=== PATIENT | female | born 1960 | race Caucasian/White ===

== ENCOUNTER 2018-02-28 08:45 | Emergency (ER) | payer OTHER ==
--- NOTE | 2018-02-28 09:09 | ED ---
Chest Pain HPI - General Chief Complaint: Chest Pain Stated Complaint: chest pain Time Seen by Provider: 02/28/18 08:53 Source: patient, RN notes reviewed, old records reviewed Mode of arrival: wheelchair Limitations: no limitations - History of Present Illness Initial Comments: This is a 4-year-old female the ER for evasive left-sided chest pain chest pain under her left breast severe. This been going on and off for a few days but is definitely present today and worse. She has had prior heart history with cardiac evaluation about 10 years ago, patient does have high blood pressure high cholesterol smoker. Patient is no prior cardiac disease. No recent travel history or sick contacts no fevers cough or congestion. MD Complaint: chest pain -: days(s) (5) Onset: during rest, during exertion Pain Location: substernal, left chest Pain Radiation: LUE Severity: mild Severity scale (1-10): 4 Quality: tightness, aching Consistency: constant Improves With: nothing Worsens With: exertion Anginal Symptoms: nausea Other Symptoms: cough Treatments Prior to Arrival: none - Related Data Home Medications Medication Instructions Recorded Confirmed Amitriptyline HCl 50 mg PO HS 02/28/18 02/28/18 Aspirin EC [Ecotrin Low Dose] 81 mg PO DAILY 02/28/18 02/28/18 Cholecalciferol [Vitamin D3] 1,000 unit PO DAILY 02/28/18 02/28/18 Cyanocobalamin (Vitamin B-12) 1,000 mcg PO DAILY 02/28/18 02/28/18 [Vitamin B-12] Gabapentin [Neurontin] 600 mg PO TID 02/28/18 02/28/18 Insulin Aspart [NovoLOG See Protocol SQ AC-TID 02/28/18 02/28/18 (formulary)] Insulin Glargine,Hum.rec.anlog 45 units SQ QAM 02/28/18 02/28/18 [Basaglar Kwikpen U-100] Levothyroxine Sodium 25 mcg PO QAM 02/28/18 02/28/18 Lisinopril [Zestril] 5 mg PO DAILY 02/28/18 02/28/18 Metoprolol Succinate (ER) [Toprol 25 mg PO DAILY 02/28/18 02/28/18 XL] Multivitamins, Thera [Multivitamin 1 tab PO DAILY 02/28/18 02/28/18 (formulary)] Simvastatin [Zocor] 40 mg PO HS 02/28/18 02/28/18 metFORMIN HCL [metFORMIN HCL ER] 750 mg PO W/SUPPER 02/28/18 02/28/18 Allergies Allergy/AdvReac Type Severity Reaction Status Date / Time No Known Allergies Allergy Verified 02/28/18 09:52 Review of Systems ROS Statement: Those systems with pertinent positive or pertinent negative responses have been documented in the HPI. ROS Other: All systems not noted in ROS Statement are negative. EKG Findings - EKG Comments: EKG Findings:: EKG shows a sinus rhythm rate of 84, SD 164, QRS 70, QTc 456 Past Medical History Past Medical History: Diabetes Mellitus, Hyperlipidemia History of Any Multi-Drug Resistant Organisms: None Reported Past Surgical History: Section, Cholecystectomy Past Psychological History: No Psychological Hx Reported Smoking Status: Current every day smoker Past Alcohol Use History: None Reported Past Drug Use History: None Reported General Exam Limitations: no limitations General appearance: alert, in no apparent distress Head exam: Present: atraumatic, normocephalic, normal inspection Eye exam: Present: normal appearance, PERRL, EOMI. Absent: scleral icterus, conjunctival injection, periorbital swelling ENT exam: Present: normal exam, mucous membranes moist Neck exam: Present: normal inspection. Absent: tenderness, meningismus, lymphadenopathy Respiratory exam: Present: normal lung sounds bilaterally. Absent: respiratory distress, wheezes, rales, rhonchi, stridor Cardiovascular Exam: Present: regular rate, normal rhythm, normal heart sounds. Absent: systolic murmur, diastolic murmur, rubs, gallop, clicks GI/Abdominal exam: Present: soft, normal bowel sounds. Absent: distended, tenderness, guarding, rebound, rigid Extremities exam: Present: normal inspection, full ROM, normal capillary refill. Absent: tenderness, pedal edema, joint swelling, calf tenderness Back exam: Present: normal inspection Neurological exam: Present: alert, oriented X3, CN II-XII intact Psychiatric exam: Present: normal affect, normal mood Skin exam: Present: warm, dry, intact, normal color. Absent: rash Course Vital Signs 02/28/18 08:48 Temperature 98 F Pulse Rate 87 Respiratory 18 Rate Blood Pressure 119/63 O2 Sat by Pulse 100 Oximetry - Reevaluation(s) Reevaluation #1: 02/28/18 12:00 Medical record is reviewed Reevaluation #2: 02/28/18 12:00 This time patient has achieve better pain control, initially was not knee pain medication Reevaluation #3: 02/28/18 12:00 Studies CTA chest is negative for PE or acute disease Chest Pain MDM - MDM 58 female the ER for evasive chest pain. Left-sided chest pain severe improvement pain control, CT is negative for dissection or PE, patient be admitted for cardiac observation Critical Care Time Critical Care Time: Yes Total Critical Care Time: 31 Disposition Clinical Impression: Chest pain Disposition: ADMITTED IP TO THIS HOSP Condition: Fair Instructions: Chest Pain (ED) Is patient prescribed a controlled substance at d/c from ED?: No Referrals: Kris Anton, JOSE LUIS [REFERRING] - 1-2 days
[2018-02-28 09:34] LABS: Basophils % (A) 0 %; Eosinophils # (A) 0.4 k/uL (0-0.7); Eosinophils % (A) 5 %; HCT 42.8 % (34.0-46.0); HGB 14.2 gm/dL (11.4-16.0); Lymphocytes # (A) 2.4 k/uL (1.0-4.8); Lymphocytes % (A) 27 %; MCH 30.2 pg (25.0-35.0); MCHC 33.3 g/dL (31.0-37.0); MCV 90.9 fL (80.0-100.0); Mean Platelet Volume 7.5; Monocytes # (A) 0.4 k/uL (0-1.0); Monocytes % (A) 4 %; Neutrophils # (A) 5.4 k/uL (1.3-7.7); Neutrophils % (A) 61 %; Platelet Count 211 k/uL (150-450); RBC 4.71 m/uL (3.80-5.40); RDW 13.3 % (11.5-15.5); WBC 8.9 k/uL (3.8-10.6)
--- NOTE | 2018-02-28 09:34 | XR ---
EXAMINATION TYPE: XR chest 2V DATE OF EXAM: 02/28/2018 COMPARISON: NONE HISTORY: Chest pain and shortness of breath, dizziness TECHNIQUE: Frontal and lateral views of the chest are obtained. FINDINGS: Patient is rotated. There are overlying cardiac leads. Interstitium is increased. Bandlike area of increased attenuation present within the lingula. No pneumothorax or pleural effusion. Heart size is within normal limits. Pulmonary vascularity and salty are unremarkable. IMPRESSION: Suspect underlying interstitial lung disease. Correlate to exclude pneumonia, follow-up recommended.
[2018-02-28 09:42] LABS: ALT 26 U/L (9-52); AST 26 U/L (14-36); Albumin 4.3 g/dL (3.5-5.0); Alkaline Phosphatase 120 U/L (38-126); Anion Gap 10 mmol/L; Blood Urea Nitrogen 16 mg/dL (7-17); Calcium 10.2 mg/dL (8.4-10.2); Carbon Dioxide 25 mmol/L (22-30); Chloride 104 mmol/L (98-107); Glucose 145 mg/dL (74-99); Lipase 56 U/L (23-300); Magnesium 1.7 mg/dL (1.6-2.3); Potassium 4.1 mmol/L (3.5-5.1); Sodium 139 mmol/L (137-145); Total Bilirubin 0.7 mg/dL (0.2-1.3); Total Protein 7.5 g/dL (6.3-8.2)
[2018-02-28 09:43] LABS: INR 0.9 (<1.2); Partial Thromboplastin Time 24.7 sec (22.0-30.0); Prothrombin Time 9.4 sec (9.0-12.0)
[2018-02-28 09:52] LABS: Creatine Kinase 190 U/L (30-135)
[2018-02-28 10:04] LABS: Creatine Kinase MB 5.3 ng/mL (0.0-2.4); Troponin I <0.012 ng/mL (0.000-0.034)
[2018-02-28] MEDS ORDERED: MORPHINE SULFATE 4 MG/ML SYRINGE IVP STA (10:27)
--- NOTE | 2018-02-28 11:32 | CT ---
EXAMINATION TYPE: CT angio chest DATE OF EXAM: 02/28/2018 COMPARISON: Radiograph same day HISTORY: 58-year-old female Chest pain TECHNIQUE: Contiguous axial scanning of the chest performed with IV Contrast, patient injected with 1 00 mL of Isovue 370. Coronal/sagittal MIP reconstructions performed. CT DLP: 215.9 mGycm Automated exposure control for dose reduction was used. FINDINGS: Heart normal size without pericardial effusion. Mild coronary vessel calcifications are demonstrated. Aorta is normal caliber with a bovine configuration to the aortic arch and mild atelectatic plaque an d calcifications in the aortic arch. Some prominent lymph nodes measure up to 8 mm at the left tracheobronchial angle, 7 mm in the AP wind ow. 8 mm at the right tracheobronchial angle. Right hilar lymph nodes measure up to 1.2 cm. No thorac ic lymphadenopathy by CT size criteria. Satisfactory opacification of the pulmonary arterial system without evidence for pulmonary embolus. Evaluation of the lung shows mild diffuse bronchial wall thickening, groundglass and mosaic attenuati on throughout the lower lungs with some reticular densities and minimal emphysematous change in the u pper lungs. No consolidation or pleural effusion is seen. Visualized upper abdomen shows moderate atherosclerotic plaque in the aorta. Cholecystectomy clips. Bones: No osseous destructive process. IMPRESSION: 1. NO EVIDENCE FOR PULMONARY EMBOLUS. 2. BORDERLINE SIZED MEDIASTINAL AND HILAR LYMPH NODES, MILDLY ENLARGED RIGHT HILAR LYMPH NODE AT 1.2 CM; PROBABLY REACTIVE. THREE-MONTH FOLLOW-UP CAN REASSESS FOR STABILITY OR RESOLUTION. 3. ADDITIONAL PULMONARY FINDINGS INCLUDE BRONCHIAL WALL THICKENING, AND LOWER LUNG PREDOMINANT GROUND GLASS AND RETICULAR DENSITIES. CORRELATE FOR POSSIBLE ETIOLOGIES SUCH BRONCHITIS AND SMALL AIRWAYS DISEASE, NSIP, AND DIP. OTHER ETIOLOGIES SUCH HYPERSENSITIVITY PNEUMONITIS AND SARCOIDOSIS CONSID ERED LESS LIKELY GIVEN THE LOWER LUNG PREDOMINANCE. THESE CHANGES CAN ALSO BE REASSESSED IN 3 MONTHS. 4. VERY MILD EMPHYSEMATOUS CHANGES NOTED.
[2018-02-28] MEDS ORDERED: ASPIRIN 81 MG PO STA (11:57)
[2018-02-28] MEDS ORDERED: MORPHINE SULFATE 4 MG/ML SYRINGE IV PRN (11:57)
[2018-02-28] MEDS ORDERED: NITROGLYCERIN SL TABS 0.4 MG TAB SUBLINGUAL PRN (11:57)
[2018-02-28] MEDS ORDERED: HEPARIN SODIUM,PORCINE 5,000 UNIT/ML 1 ML VIAL IV PRN (11:57)
[2018-02-28] MEDS ORDERED: HEPARIN SODIUM,PORCINE 5,000 UNIT/ML 1 ML VIAL IV ONE (11:57)
[2018-02-28] MEDS ORDERED: HEPARIN SOD,PORK IN 0.45% NACL 25,000 UNIT in 0.45% NACL 1 500ML.BAG IV SCH (12:00)
[2018-02-28 12:50] VITALS: BP 106/58; PULSE 76; RESP 19; TEMP 98.9
[2018-02-28] MEDS ORDERED: METOPROLOL TARTRATE 25 MG TAB PO SCH (21:00)
[2018-03-01] MEDS ORDERED: ATORVASTATIN 80 MG TAB PO SCH (09:00)
[2018-03-01] MEDS ORDERED: ASPIRIN 325 MG TAB PO SCH (09:00)
== END 2018-02-28 12:51 | disposition other institution (70) ==
LOC: EC 08:45 → 1SOBS 11:57 → UNDOADMOB 11:57 → EC 12:51
DX: R07.89 Other chest pain (principal); R05 Cough; R11.0 Nausea; M79.602 Pain in left arm; I10 Essential (primary) hypertension; E78.5 Hyperlipidemia, unspecified; E78.00 Pure hypercholesterolemia, unspecified; E11.9 Type 2 diabetes mellitus without complications; F17.200 Nicotine dependence, unspecified, uncomplicated; Z79.4 Long term (current) use of insulin; Z79.82 Long term (current) use of aspirin; Z79.899 Other long term (current) drug therapy
CPT/HCPCS: 99291; 96374; 36415; 93005; 83880; 80053; 82550; 82553; 83690; 83735; 84484; 85025; 85610; 85730; 71046; 71275; J2270; Q9967

== ENCOUNTER 2023-07-12 10:26 | Day surgery (SDC) | payer OTHER ==
[~2023-07-12 10:26] MED LIST: LIDOCAINE 1% (10MG/ML) FOR IV START INTRADERMA PRN
[2023-07-12] MEDS: LACTATED RINGERS 1,000 ML IV SCH (10:49)
[2023-07-12 11:12] LABS: Glucose,Whole Blood 97 mg/dL (70-110)
[2023-07-12] MEDS: MIDAZOLAM 2 MG/2 ML VIAL IV PRN (11:26)
[2023-07-12] MEDS: DEXAMETHASONE SOD PHOSPHATE 4 MG/ML 1 ML VIAL IV ONE (11:38)
[2023-07-12] MEDS: ONDANSETRON 4 MG/2 ML VIAL IVP ONE (11:38)
[2023-07-12] MEDS ORDERED: HYDROcodone/APAP 7.5-325MG 1 EACH TAB PO PRN ×2 (11:52)
[2023-07-12] MEDS ORDERED: HYDROmorphone 0.5 MG/0.5 ML SYRINGE IVP PRN ×3 (11:54)
[2023-07-12] MEDS ORDERED: SODIUM CHLORIDE 0.9% 1,000 ML IV SCH (12:00)
[2023-07-12] MEDS ORDERED: DEXAMETHASONE SOD PHOSPHATE 4 MG/ML 1 ML VIAL ONE (12:03)
[2023-07-12] MEDS ORDERED: PROPOFOL 10 MG/ML 20 ML VIAL IV ONE (12:03)
[2023-07-12] MEDS ORDERED: ROPIVACAINE 5 MG/ML 30 ML VIAL ONE (12:03)
[2023-07-12] MEDS ORDERED: fentaNYL (PF) 50 MCG/ML 2 ML AMP ONE (12:03)
[2023-07-12] MEDS ORDERED: LIDOCAINE 1% INJ 10MG/ML (20 ML MDV) ONE (12:03)
[2023-07-12] MEDS: ceFAZolin 1,000 MG in SODIUM CHLORIDE 0.9% 1,000 ML IRRIGATION ONE (12:03)
[2023-07-12] MEDS ORDERED: MIDAZOLAM 2 MG/2 ML VIAL ONE (12:03)
--- NOTE | 2023-07-12 12:38 | P.OP ---
Date of Procedure: 07/12/23 Preoperative Diagnosis: Fracture right patella Postoperative Diagnosis: Fracture right patella Procedure(s) Performed: Open reduction and internal fixation of the right patella Implants: [employer] 4.0 cannulated screws Anesthesia: DEBORAHA Surgeon: Don Helton Harpoon Engagement Planning Operator #1: Niur Thurman Estimated Blood Loss (ml): 10 Pathology: none sent Condition: stable Disposition: PACU Indications for Procedure: This is a 63-year-old female that fell and sustained a fracture of the mid pole of the right patella with displacement. After discussing the surgical nonsurgical treatment options with her at length I recommended open reduction fixation of the right patella and informed consent was obtained. Operative Findings: The operative findings are consistent with a fracture of the mid pole of the rig ht patella with displacement Description of Procedure: The patient was seen and evaluated in the preoperative area. The consent was reviewed and the operative site was marked with a skin marker. Patient was then brought to the operating room and given 2 g of Ancef by the anesthesia department. A general anesthetic was then administered by the anesthesia department. Tourniquet was placed on the upper thigh and the lower extremity was then prepped and draped in the usual sterile fashion. A universal timeout was then performed which confirmed the patient's name, surgical site, ALLERGIES, and consent. The lower extremity was then exsanguinated, and the tourniquet inflated to 250 mmHg. A standard midline incision was then performed over the knee. Incision was carried down to the patella and the fracture was readily visualized. Fracture hematoma was evacuated, and the fracture was then reduced with bone reducing clamps. Fluoroscopic x-rays confirmed reduction of the fracture. Next, 2 K wires were passed from proximal to distal across the fracture site. These were then measured, drilled, and appropriate length 4.0 cannulated screws were placed over the guidewire. This afforded excellent fixation of the patella fracture. The clamps were then removed released and fluoroscopic x-rays were performed which confirmed reduction of the fracture and placement of the screws. The tourniquet was then released and hemostasis was obtained. The incision site was then irrigated with antibiotic solution. Wound was then closed with 3-0 Vicryl for the subcutaneous tissue followed by 4-0 strata fix suture. Excellent thin glue was placed for the skin. Sterile dressings were applied, Patient was placed in a knee immobilizer. Patient was then transported to the recovery room in stable condition. The assistant controller KELVIN Chang was required due to the complexity of the surgery and the need for a skilled surgical assist.
[2023-07-12] MEDS: LACTATED RINGERS 1,000 ML IV ONE (12:57)
--- NOTE | 2023-07-12 13:01 | XR ---
EXAMINATION TYPE: XR knee limited RT, FL guidance operating room DATE OF EXAM: 07/12/2023 Comparison: None Clinical History: 63-year-old female ORIF patella, KNEE RT Findings: RT PATELLA ORIF. 24.5 SEC FL TIME. 0.4931 Gycm2. 2 images provided. Impression: Intraoperative fluoroscopy as above.
[2023-07-12] MEDS: HYDROmorphone 0.5 MG/0.5 ML SYRINGE IVP PRN (13:03)
--- NOTE | 2023-07-12 13:10 | P.ANPRN ---
Procedure Note - Anesthesia - Nerve Block Performed Right Adductor Canal Single Time Out Performed: Yes (1125) Date of Procedure: 07/12/23 Location of Patient: PreOp Indication: Acute Post-Operative Pain, Dx/Pain Location (Right knee), Requested by Surgeon Specifically requested for management of pain by DrSlava: Don Helton Sedation Type: Sedate with meaningful contact maintained Preparation: Sterile Prep Position: Supine Catheter: None Needle Types: Pajunk Needle Gauge: 21 Ultrasound used to visualize needle placement: Yes Ultrasound used to observe medication spread: Yes Injectate: 0.5% Ropivacaine (see comment for volume) (30 mL +4 mg of Decadron) Blood Aspirated: No Pain Paresthesia on Injection Noted: No Resistance on Injection: Normal Image Stored and Saved: Yes Events: Uneventful and Well Tolerated
[2023-07-12 13:18] VITALS: TEMP 97.4
[2023-07-12 14:03] LABS: Glucose,Whole Blood 95 mg/dL (70-110)
[2023-07-12 14:26] VITALS: RESP 16
[2023-07-12 15:00] VITALS: BP 144/74; PULSE 90
== END 2023-07-12 15:11 | disposition home or self-care (01) ==
LOC: OR 10:26
PROVIDERS: ATTEND Orthopaedic Surgery
DX: S82.001A Unspecified fracture of right patella, initial encounter for closed fracture (principal); I10 Essential (primary) hypertension; E78.5 Hyperlipidemia, unspecified; E11.9 Type 2 diabetes mellitus without complications; E03.9 Hypothyroidism, unspecified; F17.200 Nicotine dependence, unspecified, uncomplicated; Z79.84 Long term (current) use of oral hypoglycemic drugs; Z79.890 Hormone replacement therapy; Z79.899 Other long term (current) drug therapy; W19.XXXA Unspecified fall, initial encounter
CPT/HCPCS: 64447; 73560; 27524; C1713; J2250; J1100; J0690 ×2; J2405; J2001; J3010; J2795; J2704; J1170